=== PATIENT | female | born 1980 | race Caucasian/White ===

== ENCOUNTER 2018-10-01 18:17 | Emergency (ER) | payer MEDICAID, OTHER ==
[2018-10-01] MEDS ORDERED: MELO15TA28 PO (18:53)
[2018-10-01] MEDS ORDERED: TOPI100T9 PO (18:53)
[2018-10-01] MEDS ORDERED: SERT-138 PO (18:53)
[2018-10-01] MEDS ORDERED: CYCL10TA PO (18:53)
[2018-10-01] MEDS ORDERED: PROP20TA72 PO (18:53)
[2018-10-01] MEDS ORDERED: METH1TAB40 PO (18:53)
[2018-10-01] MEDS ORDERED: ARIP1TAB PO (18:53)
[2018-10-01] MEDS ORDERED: GABA600T4 PO (18:53)
[2018-10-01] MEDS ORDERED: NAPR500T6 PO (18:53)
[2018-10-01] MEDS ORDERED: HYDR50TA70 PO (18:53)
[2018-10-01 19:37] LABS: HEMOGLOBIN 11.5 g/dl (12.0-15.5); MEAN CORPUSCULAR HEMOGLOBIN 29.6 pg (27.0-33.0); MEAN CORPUSCULAR HGB CONC 31.9 g/dl (32.0-36.5); MEAN CORPUSCULAR VOLUME 92.5 fl (80.0-96.0); PLATELET COUNT, AUTOMATED 255 10^3/uL (150-450); RED BLOOD COUNT 3.89 10^6/uL (4.00-5.40); WHITE BLOOD COUNT 7.9 10^3/uL (4.0-10.0)
[2018-10-01 20:06] LABS: ACETAMINOPHEN LEVEL < 2.0 UG/ML (10.0-30.0); ALBUMIN 3.4 GM/DL (3.2-5.2); ALT/SGPT 11 U/L (12-78); BILIRUBIN,DIRECT < 0.1 MG/DL (0.0-0.2); BILIRUBIN,TOTAL 0.3 MG/DL (0.2-1.0); BLOOD UREA NITROGEN 18 MG/DL (7-18); CALCIUM LEVEL 8.8 MG/DL (8.5-10.1); CARBON DIOXIDE LEVEL 24 MEQ/L (21-32); CHLORIDE LEVEL 117 MEQ/L (98-107); CREATININE FOR GFR 0.87 MG/DL (0.55-1.30); GLOMERULAR FILTRATION RATE > 60.0 (>58); GLUCOSE, FASTING 96 MG/DL (70-100); POTASSIUM SERUM 4.1 MEQ/L (3.5-5.1); SALICYLATE LEVEL 2.4 MG/DL (5.0-30.0); SODIUM LEVEL 145 MEQ/L (136-145); TOTAL PROTEIN 6.1 GM/DL (6.4-8.2)
[2018-10-01 20:07] LABS: ETHYL ALCOHOL (ETHANOL) < 0.003 % (0.000-0.010); HCG, SERUM QUALITATIVE NEGATIVE (NEGATIVE)
[2018-10-01 21:19] VITALS: BP 131/66
== END 2018-10-01 21:19 | disposition home or self-care (01) ==
LOC: M ED 18:17
DX: F43.20 Adjustment disorder, unspecified (principal); F33.9 Major depressive disorder, recurrent, unspecified; F41.9 Anxiety disorder, unspecified; Z79.899 Other long term (current) drug therapy
CPT/HCPCS: 36415; 80048; 80076; 84443; 84703; 85027; 99284; G0480

== ENCOUNTER 2019-10-07 13:45 | Emergency (ER) | payer OTHER ==
[~2019-10-07] VITALS: Ht 170.2 cm; Wt 155.0 kg
[~2019-10-07 13:45] MED LIST: ARIP1TAB PO; CYCL-707 PO; GABA600T4 PO; HYDR50TA70 PO; MELO15TA28 PO; METH1TAB40 PO; NAPR500T6 PO; PROP20TA72 PO; SERT-138 PO; TOPI100T9 PO
--- NOTE | 2019-10-07 14:26 | REPVR ---
PROCEDURE INFORMATION: Exam: CT Head Without Contrast Exam date and time: 10/07/2019 1:56 PM Age: 39 years old Clinical indication: Injury or trauma; Fall; Initial encounter; Blunt trauma (contusions or hematomas); Additional info: Fall injury TECHNIQUE: Imaging protocol: Computed tomography of the head without contrast. Radiation optimization: All CT scans at this facility use at least one of these dose optimization techniques: automated exposure control; mA and/or kV adjustment per patient size (includes targeted exams where dose is matched to clinical indication); or iterative reconstruction. COMPARISON: No relevant prior studies available. FINDINGS: Brain: No acute intracranial hemorrhage, cerebral edema, or midline shift. 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 Ventricles: No hydrocephalus. Bones/joints: No acute fracture. Sinuses: Mild mucosal thickening is present in the right maxillary sinus. Mastoid air cells: Visualized mastoid air cells are well aerated. Orbits: The included orbital structures are unremarkable. Soft tissues: Mild left frontotemporal scalp swelling is present. IMPRESSION: No acute intracranial abnormality. Electronically signed by: Anshu Camarillo On 10/07/2019 14:26:43 PM
[2019-10-07] MEDS ORDERED: BOOSTRIX/ADACEL VACCINE (DIPHTH/PERTUSS/ACELL/TETANUS) 0.5ML SYR IM ONE (14:30)
--- NOTE | 2019-10-07 14:36 | REPVR ---
PROCEDURE INFORMATION: Exam: CT Cervical Spine Without Contrast Exam date and time: 10/07/2019 1:56 PM Age: 39 years old Clinical indication: Injury or trauma; Fall; Initial encounter; Blunt trauma; Additional info: Fall injury TECHNIQUE: Imaging protocol: Computed tomography images of the cervical spine without contrast. Radiation optimization: All CT scans at this facility use at least one of these dose optimization techniques: automated exposure control; mA and/or kV adjustment per patient size (includes targeted exams where dose is matched to clinical indication); or iterative reconstruction. COMPARISON: No relevant prior studies available. FINDINGS: Vertebrae: No acute fracture. Normal alignment. Discs/Spinal canal/Neural foramina: No significant spinal canal stenosis or neural foraminal narrowing. Soft tissues: Unremarkable. Lungs: Lung apices are normal. IMPRESSION: No acute findings. Electronically signed by: Anshu Camarillo On 10/07/2019 14:36:21 PM
[2019-10-07] MEDS ORDERED: VRAY4.5C (14:40)
[2019-10-07] MEDS ORDERED: LITH300T2 (14:40)
[2019-10-07] MEDS ORDERED: ACETAMINOPHEN 500 MG TAB PO ONE (14:45)
--- NOTE | 2019-10-07 15:17 | REPVR ---
PROCEDURE INFORMATION: Exam: XR Left Knee Exam date and time: 10/07/2019 2:24 PM Age: 39 years old Clinical indication: Pain; Knee; Left; Additional info: Fall TECHNIQUE: Imaging protocol: XR Left knee. Views: 4 or more views. COMPARISON: CR KNEE COMPLETE 12/06/2014 1:11 PM FINDINGS: Bones/joints: There is no acute fracture or dislocation. Moderate degenerative changes of the patellofemoral compartment are present. There is moderate lateral subluxation of the patella on the sunrise radiograph. Mild osteophyte formation is noted in the medial and lateral compartments. Soft tissues: Normal. IMPRESSION: 1. No acute abnormality. 2. Chronic findings as discussed above. Electronically signed by: Anshu Camarillo On 10/07/2019 15:17:56 PM
--- NOTE | 2019-10-07 15:18 | REPVR ---
PROCEDURE INFORMATION: Exam: XR Right Tibia and Fibula Exam date and time: 10/07/2019 2:24 PM Age: 39 years old Clinical indication: Pain; Lower leg; Right; Additional info: Fall TECHNIQUE: Imaging protocol: XR Right tibia and fibula. Views: 2 views. COMPARISON: CR KNEE COMPLETE 12/06/2014 1:11 PM FINDINGS: Bones/joints: There is no acute fracture or dislocation. A massive plantar calcaneal spur is present. There is a small Achilles spur. Soft tissues: Normal. IMPRESSION: No acute abnormality. Electronically signed by: Anshu Camarillo On 10/07/2019 15:19:04 PM
[2019-10-07 15:45] LABS: BASO # 0.1 10^3/uL (0.0-0.2); BASO % 0.4 % (0.0-1.0); EOS % 0.1 % (0.0-3.0); HEMATOCRIT 39.6 % (36.0-47.0); HEMOGLOBIN 12.4 g/dl (12.0-15.5); LYMPH # 2.7 10^3/uL (1.5-5.0); LYMPH % 19.3 % (24.0-44.0); MEAN CORPUSCULAR HEMOGLOBIN 26.7 pg (27.0-33.0); MEAN CORPUSCULAR HGB CONC 31.3 g/dl (32.0-36.5); MEAN CORPUSCULAR VOLUME 85.3 fl (80.0-96.0); MONO % 6.9 % (0.0-5.0); NEUTROPHILS # 10.3 10^3/uL (1.5-8.5); NEUTROPHILS % 72.7 % (36.0-66.0); PLATELET COUNT, AUTOMATED 338 10^3/uL (150-450); RED BLOOD COUNT 4.64 10^6/uL (4.00-5.40); WHITE BLOOD COUNT 14.2 10^3/uL (4.0-10.0)
[2019-10-07] MEDS ORDERED: NS 1,000 ML IV ONE ×2 (16:00→18:15)
[2019-10-07 16:16] LABS: ALBUMIN 3.9 GM/DL (3.2-5.2); ALT/SGPT 19 U/L (12-78); BILIRUBIN,DIRECT 0.2 MG/DL (0.0-0.2); BILIRUBIN,TOTAL 0.6 MG/DL (0.2-1.0); BLOOD UREA NITROGEN 9 MG/DL (7-18); CALCIUM LEVEL 8.9 MG/DL (8.5-10.1); CARBON DIOXIDE LEVEL 24 MEQ/L (21-32); CHLORIDE LEVEL 109 MEQ/L (98-107); CK-MB VALUE MASS 1.9 NG/ML (<3.6); CPK CREATINE PHOSPHOKINASE 139 U/L (26-192); CREATININE FOR GFR 0.93 MG/DL (0.55-1.30); FREE T4 1.33 NG/DL (0.76-1.46); GLOMERULAR FILTRATION RATE > 60.0 (>58); GLUCOSE, FASTING 94 MG/DL (70-100); LIPASE 58 U/L (73-393); MB/CK RELATIVE INDEX 1.37 (< OR =4); POTASSIUM SERUM 4.1 MEQ/L (3.5-5.1); SODIUM LEVEL 141 MEQ/L (136-145); TROPONIN I < 0.02 NG/ML (< 0.10)
[2019-10-07] MEDS ORDERED: cefTRIAXone SOD 1 GM in D5W MINI-BAG PLUS 50 ML IV ONE (17:15)
[2019-10-07] MEDS ORDERED: MACR100C43 PO (19:41)
[2019-10-07 19:51] VITALS: BP 153/82
--- NOTE | 2019-10-28 17:47 | ECGEPIP ---
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
== END 2019-10-07 19:58 | disposition home or self-care (01) ==
LOC: M ED 13:45
DX: N39.0 Urinary tract infection, site not specified (principal); I95.1 Orthostatic hypotension; I49.9 Cardiac arrhythmia, unspecified; F41.9 Anxiety disorder, unspecified; F32.9 Major depressive disorder, single episode, unspecified; Z98.84 Bariatric surgery status; Z79.899 Other long term (current) drug therapy
CPT/HCPCS: 70450; 72125; 73564; 73590; 80048; 80076; 81001; 82550; 82553; 83690; 84439; 84443; 85025; 87088; 87186; 90471; 90715; 93005; 96361; 96365; 99284; J0696

== ENCOUNTER 2021-03-21 22:49 | Emergency (ER) | payer OTHER ==
[~2021-03-21] VITALS: Ht 170.2 cm; Wt 163.2 kg
[~2021-03-21 22:49] MED LIST changes: +LITH300T2; +MACR100C43 PO; +METH-1164 PO; -METH1TAB40 PO; +VRAY4.5C
[2021-03-21 23:23] LABS: APPEARANCE, URINE HAZY (CLEAR); BACTERIA, URINE AUTO 1+ (NEGATIVE); BILIRUBIN, URINE AUTO NEGATIVE (NEGATIVE); BLOOD, URINE BLOOD 1+ (NEGATIVE); COLOR, URINE YELLOW (YELLOW); GLUCOSE, URINE (UA) AUTO NEGATIVE (NEGATIVE); KETONE, URINE AUTO NEGATIVE (NEGATIVE); LEUKOCYTE ESTERASE, URINE AUTO 3+ (NEGATIVE); MUCUS, URINE SMALL (NEGATIVE); NITRITE, URINE AUTO NEGATIVE (NEGATIVE); PROTEIN, URINE AUTO NEGATIVE (NEGATIVE); RBC, URINE AUTO 3 /HPF (0-3); SPECIFIC GRAVITY URINE AUTO 1.021 (1.002-1.035); SQUAMOUS EPITHELIAL CELL UR AU 3 /HPF (0-6); UROBILINOGEN, URINE AUTO 0.2 mg/dL (0.0-2.0); WBC, URINE AUTO 12 /HPF (0-3)
[2021-03-22] MEDS ORDERED: NS 1,000 ML IV ONE (01:25)
[2021-03-22] MEDS ORDERED: PHENAZOPYRIDINE 100 MG TAB PO ONE (01:25)
[2021-03-22 01:45] LABS: BASO % 0.4 % (0.0-1.0); EOS # 0.1 10^3/uL (0.0-0.5); EOS % 1.3 % (0.0-3.0); HEMATOCRIT 36.1 % (36.0-47.0); HEMOGLOBIN 10.8 g/dl (12.0-15.5); LYMPH % 39.7 % (24.0-44.0); MEAN CORPUSCULAR HEMOGLOBIN 26.1 pg (27.0-33.0); MEAN CORPUSCULAR HGB CONC 29.9 g/dl (32.0-36.5); MEAN CORPUSCULAR VOLUME 87.2 fl (80.0-96.0); MONO # 0.8 10^3/uL (0.0-0.8); MONO % 7.5 % (2.0-8.0); NEUTROPHILS # 5.2 10^3/uL (1.5-8.5); NEUTROPHILS % 50.8 % (36.0-66.0); PLATELET COUNT, AUTOMATED 301 10^3/uL (150-450); RED BLOOD COUNT 4.14 10^6/uL (4.00-5.40); WHITE BLOOD COUNT 10.1 10^3/uL (4.0-10.0)
[2021-03-22 02:13] LABS: ALBUMIN 3.5 GM/DL (3.2-5.2); ALT/SGPT 15 U/L (12-78); BILIRUBIN,DIRECT < 0.1 MG/DL (0.0-0.2); BILIRUBIN,TOTAL 0.3 MG/DL (0.2-1.0); LIPASE 445 U/L (73-393); TOTAL PROTEIN 7.1 GM/DL (6.4-8.2)
[2021-03-22] MEDS ORDERED: FOSFOMYCIN TROMETHAMINE 3 GM POWDER PACKET (MONUROL) PO ONE (02:40)
[2021-03-22 03:06] VITALS: BP 120/72
== END 2021-03-22 03:06 | disposition home or self-care (01) ==
LOC: M ED 22:49
DX: N39.0 Urinary tract infection, site not specified (principal); Z98.84 Bariatric surgery status

== ENCOUNTER 2021-04-10 12:46 | Emergency (ER) | payer OTHER ==
[~2021-04-10] VITALS: Ht 170.2 cm; Wt 159.1 kg
[2021-04-10 12:46] VITALS: BP 152/85
[2021-04-10] MEDS ORDERED: LITH300T2 (12:52)
[2021-04-10] MEDS ORDERED: TRAZ-252 (12:52)
[2021-04-10] MEDS ORDERED: VITA1CAP25 (12:52)
[2021-04-10] MEDS ORDERED: ACETAMINOPHEN 325 MG TAB PO ONE (13:50)
== END 2021-04-10 14:10 | disposition home or self-care (01) ==
LOC: M ED 12:46
DX: S83.92XA Sprain of unspecified site of left knee, initial encounter (principal); W00.0XXA Fall on same level due to ice and snow, initial encounter; Y92.481 Parking lot as the place of occurrence of the external cause; Y93.01 Activity, walking, marching and hiking; Y99.9 Unspecified external cause status; M17.12 Unilateral primary osteoarthritis, left knee

== ENCOUNTER → 2021-04-20 | Outpatient (REF) | payer OTHER ==
[~2021-04-20] MED LIST changes: +TRAZ-252; +VITA1CAP25
[2021-04-20 13:47] LABS: APPEARANCE, URINE CLEAR (CLEAR); BACTERIA, URINE AUTO NEGATIVE (NEGATIVE); BILIRUBIN, URINE AUTO NEGATIVE (NEGATIVE); BLOOD, URINE BLOOD 1+ (NEGATIVE); COLOR, URINE YELLOW (YELLOW); GLUCOSE, URINE (UA) AUTO NEGATIVE (NEGATIVE); KETONE, URINE AUTO NEGATIVE (NEGATIVE); LEUKOCYTE ESTERASE, URINE AUTO TRACE (NEGATIVE); MUCUS, URINE SMALL (NEGATIVE); NITRITE, URINE AUTO NEGATIVE (NEGATIVE); PROTEIN, URINE AUTO NEGATIVE (NEGATIVE); RBC, URINE AUTO 4 /HPF (0-3); SPECIFIC GRAVITY URINE AUTO 1.015 (1.002-1.035); SQUAMOUS EPITHELIAL CELL UR AU 1 /HPF (0-6); UROBILINOGEN, URINE AUTO 0.2 mg/dL (0.0-2.0); WBC, URINE AUTO 2 /HPF (0-3)
== END ==
LOC: M SMT 12:49
PROVIDERS: ATTEND Physician Assistant
DX: R35.0 Frequency of micturition (principal)

== ENCOUNTER 2021-10-11 18:49 | Emergency (ER) | payer OTHER ==
[~2021-10-11] VITALS: Ht 170.2 cm; Wt 159.1 kg
[2021-10-11 22:57] VITALS: BP 130/88
[2021-10-11] MEDS ORDERED: diazePAM 10 MG TAB PO ONE (23:45)
[2021-10-11] MEDS ORDERED: LIDOCAINE 5% (LIDODERM) PATCH TD ONE (23:45)
[2021-10-11] MEDS ORDERED: KETOROLAC 60MG 2ML VIAL IM ONE (23:45)
[2021-10-12 00:45] LABS: BACTERIA, URINE SMALL AMOUNT; HYALINE CAST, URINE NONE SEEN /lpf (0-1); SQUAMOUS EPITHELIAL CELL URINE MOD AMOUNT /hpf (SMALL AMT)
[2021-10-12 00:46] LABS: MUCUS, URINE SMALL AMOUNT (NEGATIVE)
[2021-10-12] MEDS ORDERED: ASPE4PAD2 TOP (01:49)
[2021-10-12] MEDS ORDERED: METH-1165 PO (01:49)
[2021-10-12] MEDS ORDERED: NAPR-837 PO (01:49)
[2021-10-12] MEDS ORDERED: **NOTE PATIENT COMMENT** MISC XX SCH (21:00)
== END 2021-10-12 02:01 | disposition home or self-care (01) ==
LOC: M ED 18:49
DX: M53.84 Other specified dorsopathies, thoracic region (principal); K21.9 Gastro-esophageal reflux disease without esophagitis; Z98.84 Bariatric surgery status; Z79.899 Other long term (current) drug therapy
CPT/HCPCS: 36415; 72131; 81000; 81015; 87086; 99283; J1885

== ENCOUNTER → 2021-10-20 | Outpatient (REF) ==
[~2021-10-20] MED LIST changes: +ASPE4PAD2 TOP; +METH-1165 PO; +NAPR-837 PO
== END ==
LOC: M PLAIMG 10:21
PROVIDERS: ATTEND Internal Medicine
DX: Z00.00 Encounter for general adult medical examination without abnormal findings (principal)

== ENCOUNTER 2021-11-22 18:09 | Emergency (ER) | payer OTHER ==
[~2021-11-22] VITALS: Ht 170.2 cm; Wt 160.0 kg
[2021-11-22] MEDS ORDERED: NITR1CAP11 PO (19:49)
[2021-11-22] MEDS ORDERED: PHEN-372 PO (19:50)
[2021-11-22] MEDS ORDERED: PHENAZOPYRIDINE 100 MG TAB PO ONE (19:50)
[2021-11-22] MEDS ORDERED: NITROFURANTOIN (MACROBID) 100 MG CAP PO ONE (19:50)
[2021-11-22 20:02] VITALS: BP 145/74
== END 2021-11-22 20:07 | disposition home or self-care (01) ==
LOC: M ED 18:09
DX: N39.0 Urinary tract infection, site not specified (principal); Z79.899 Other long term (current) drug therapy

== ENCOUNTER → 2023-03-17 | Outpatient (CLI) | payer OTHER ==
[~2023-03-17] MED LIST changes: +NITR1CAP11 PO; +PHEN-372 PO
== END ==
LOC: M PLAIMG 08:13
PROVIDERS: ATTEND Psychiatry & Neurology Neurology
DX: M54.6 Pain in thoracic spine (principal); M43.04 Spondylolysis, thoracic region; M54.59 Other low back pain; M43.06 Spondylolysis, lumbar region